=== PATIENT | male | born 1965 | race Caucasian/White ===

== ENCOUNTER → 2017-07-05 | Outpatient (CLI) | payer BC ==
[~2017-07-05] MED LIST: [UNRECOGNIZED DRUG - OTHER]
[2017-07-05 13:40] LABS: BASOPHILS % 0.3 % (0.0-2.0); EOSINOPHILS % 0.3 % (0.0-7.0); HEMATOCRIT 45.5 % (42.0-52.0); HEMOGLOBIN 15.6 g/dl (14.0-18.0); LYMPHOCYTES # 0.8 10^3/ul (0.8-2.9); LYMPHOCYTES % 12.9 % (15.0-51.0); MEAN CORPUSCULAR HEMOGLOBIN 31.3 pg (29.0-33.0); MEAN CORPUSCULAR HGB CONC 34.3 g/dl (32.0-37.0); MEAN CORPUSCULAR VOLUME 91.4 fl (82.0-101.0); MEAN PLATELET VOLUME 10.2 fl (7.4-10.4); MONOCYTE # 0.6 10^3/ul (0.3-0.9); MONOCYTES % 10.7 % (0.0-11.0); NEUTROPHILS % 75.5 % (39.0-77.0); PLATELET COUNT 243 10^3/UL (140-415); RED BLOOD COUNT 4.98 10^6/ul (4.70-6.10); RED CELL DISTRIBUTION WIDTH 13.2 % (11.5-14.5); WHITE BLOOD COUNT 5.9 10^3/ul (4.8-10.8)
[2017-07-05 14:06] LABS: ALBUMIN 4.5 g/dl (3.3-4.9); ALBUMIN/GLOBULIN RATIO 1.45; BILIRUBIN,INDIRECT 0.2 mg/dl (0-1.1); BILIRUBIN,TOTAL 0.2 mg/dl (0.2-1.3); CALCIUM 9.7 mg/dl (8.4-10.2); CHOL/HDL RATIO 7.4 RATIO; CREATININE 1.06 mg/dl (0.61-1.24); POTASSIUM 4.8 mmol/L (3.5-5.1); TOTAL PROTEIN 7.6 g/dl (6.1-8.1)
[2017-07-05 14:36] LABS: THYROID STIMULATING HORMONE 4.74 MIU/L (0.465-4.680)
== END | disposition home or self-care (01) ==
LOC: LAB 13:19
PROVIDERS: ATTEND Internal Medicine
DX: E78.5 Hyperlipidemia, unspecified (principal)
CPT/HCPCS: 80053; 80061; 82306; 84436; 84443; 85025

== ENCOUNTER → 2017-08-16 | Outpatient (CLI) | payer BC ==
[2017-08-16 10:13] LABS: BASOPHILS % 0.7 % (0.0-2.0); EOSINOPHILS # 0.1 10^3/ul (0.0-0.5); EOSINOPHILS % 1.1 % (0.0-7.0); HEMATOCRIT 46.1 % (42.0-52.0); HEMOGLOBIN 15.8 g/dl (14.0-18.0); LYMPHOCYTES # 0.6 10^3/ul (0.8-2.9); LYMPHOCYTES % 13.8 % (15.0-51.0); MEAN CORPUSCULAR HEMOGLOBIN 31.7 pg (29.0-33.0); MEAN CORPUSCULAR HGB CONC 34.3 g/dl (32.0-37.0); MEAN CORPUSCULAR VOLUME 92.4 fl (82.0-101.0); MONOCYTE # 0.5 10^3/ul (0.3-0.9); MONOCYTES % 11.2 % (0.0-11.0); NEUTROPHIL # 3.3 10^3/ul (1.6-7.5); PLATELET COUNT 214 10^3/UL (140-415); RED BLOOD COUNT 4.99 10^6/ul (4.70-6.10); RED CELL DISTRIBUTION WIDTH 13.2 % (11.5-14.5); WHITE BLOOD COUNT 4.6 10^3/ul (4.8-10.8)
[2017-08-16 10:42] LABS: ALBUMIN/GLOBULIN RATIO 1.31; CHOL/HDL RATIO 3.9 RATIO
[2017-08-16 11:08] LABS: ALBUMIN 4.2 g/dl (3.3-4.9); BILIRUBIN,INDIRECT 0.4 mg/dl (0-1.1); BILIRUBIN,TOTAL 0.4 mg/dl (0.2-1.3); CALCIUM 9.3 mg/dl (8.4-10.2); CREATININE 1.09 mg/dl (0.61-1.24); TOTAL PROTEIN 7.4 g/dl (6.1-8.1)
[2017-08-16 11:10] LABS: POTASSIUM 5.1 mmol/L (3.5-5.1)
== END | disposition home or self-care (01) ==
LOC: LAB 09:51
PROVIDERS: ATTEND Internal Medicine
DX: E78.5 Hyperlipidemia, unspecified (principal)
CPT/HCPCS: 80053; 80061; 85025

== ENCOUNTER → 2018-12-25 | Outpatient (CLI) | payer BC | END | disposition home or self-care (01) | LOC: LAB 09:54 | PROVIDERS: ATTEND Internal Medicine | DX: R73.03 Prediabetes (principal); E78.5 Hyperlipidemia, unspecified; M19.011 Primary osteoarthritis, right shoulder; M47.892 Other spondylosis, cervical region | CPT/HCPCS: 72040; 80053; 80061; 83036; 85025 ==

== ENCOUNTER 2019-04-20 11:50 | Emergency (ER) | payer BC ==
[~2019-04-20] VITALS: Wt 109.2 kg
[2019-04-20 11:54] VITALS: BP 126/78; PULSE 78; RESP 18
[2019-04-20] MEDS ORDERED: KETOROLAC 30 MG INJ IM STA (12:50)
--- NOTE | 2019-04-20 12:55 | ERD ---
ER Documentation Chief Complaint Chief Complaint R WRIST PAIN X 3 DAYS HPI Patient is a 54 years old male with PMHx of multiple cancer presenting to the clinic for right wrist pain since Tuesday. Patient reports pain came about suddenly and is worsen with flexion of the wrist. Patient admits to taking OTC ibuprofen and heat pad with resolution, which worsens after a few hours. Patient denies any injury or trauma. Patient states that he hears a "cracking" noise every time he holds his right forearm with his left. ROS All systems reviewed and are negative except as per history of present illness. Medications Home Meds Active Scripts Ibuprofen* (Ibuprofen*) 800 Mg Tablet, 800 MG PO Q8 for 7 Days, #21 TAB Prov:TURNER WADDELL PA-C 04/20/19 Reported Medications [No0ne] No Conflict Check 08/09/14 Allergies Allergies: Coded Allergies: No Known Allergy (Unverified , 08/09/14) PMhx/Soc Carcinoma. History of Surgery: Yes (S/P R KNEE OPA 08-09-14) Anesthesia Reaction: No Hx Neurological Disorder: No Hx Respiratory Disorders: No Hx Cardiac Disorders: No Hx Psychiatric Problems: No Hx Miscellaneous Medical Probl: Yes (R KNEE MENISCUS TEAR) Hx Alcohol Use: Yes Hx Substance Use: No Hx Tobacco Use: No Physical Exam Vitals Vital Signs Date Temp Pulse Resp B/P (MAP) Pulse Ox O2 O2 Flow FiO2 Time Delivery Rate 04/20/19 98.0 78 18 126/78 99 11:54 (94) Physical Exam Const: No acute distress Head: Atraumatic Eyes: Normal Conjunctiva Resp: Clear to auscultation bilaterally Cardio: Regular rate and rhythm, no murmurs Neur: Awake and alert Psych: Normal Mood and Affect Right Forearm Exam: Mild tenderness to palpation of distal forearm with flexion of wrist. Crepitus during flexion of wrist. Results 24 hrs Current Medications Medications Dose Sig/Emmy Start Time Status Last (Trade) Ordered Route PRN Stop Time Admin Dose Reason Admin Ketorolac 30 mg ONCE STAT 04/20/19 DC 04/20/19 Tromethamine IM 12:50 04/20/19 12:55 (Toradol) 12:51 Procedures/MDM Patient was seen and evaluated for right wrist pain. Right wrist X-Ray revealed Mild positive ulnar variance. No signs of fracture noted. Patient is stable and ready for discharge. Patient was advised to f/u with orthopedic. Departure Diagnosis: Primary Impression: Forearm injury Encounter type: initial encounter Laterality: right Qualified Codes: S59.911A - Unspecified injury of right forearm, initial encounter Condition: Stable Patient Instructions: Hand and Wrist Exercises: Forearm Roll Referrals: [facility] Additional Instructions: Patient advised to return to the ED immediately for new or worsening symptoms. Patient advised to follow up with primary care provider in the next 24-48 hours. Patient verbalized understanding and agrees with treatment plan and course of action. If patient has no primary care they may follow up with [facility] [address] [place] [id number] or [facility] [address] [place] [address] or [facility] [address] [place] [address] TURNER WADDELL PA-C Apr 20, 2019 12:55
[2019-04-20] MEDS ORDERED: IBUP-1544 PO (14:02)
== END 2019-04-20 14:10 | disposition home or self-care (01) ==
LOC: FTE 11:50
DX: S59.911A Unspecified injury of right forearm, initial encounter (principal); X58.XXXA Exposure to other specified factors, initial encounter; Y92.9 Unspecified place or not applicable
CPT/HCPCS: 73110; 96372; 99284; J1885